=== PATIENT | female | born 1995 | race African-American/Black ===

== ENCOUNTER 2022-01-16 08:00 | Outpatient (CLI) | payer OTHER ==
[2022-01-16 22:25] LABS: BACTERIAL VAGINOSIS DNA POSITIVE (NEGATIVE); CANDIDA GLABRATA DNA NEGATIVE (NEGATIVE); CANDIDA GROUP DNA NEGATIVE (NEGATIVE); CANDIDA KRUSEI DNA NEGATIVE (NEGATIVE); TRICHOMONAS VAGINALIS DNA NEGATIVE (NEGATIVE)
[2022-01-16 22:59] LABS: CHLAMYDIA TRACHOMATIS DNA NEGATIVE (NEGATIVE); NEISSERIA GONORRHOEAE DNA NEGATIVE (NEGATIVE)
== END 2022-01-16 23:59 | disposition home or self-care (01) ==
LOC: LAB.N 08:00
PROVIDERS: ATTEND Family Medicine
DX: N39.0 Urinary tract infection, site not specified (principal); R10.2 Pelvic and perineal pain
CPT/HCPCS: 81514; 87491; 87591; 87661

== ENCOUNTER 2023-01-30 10:45 | Outpatient (CLI) | payer OTHER ==
[2023-01-30 19:39] LABS: BACTERIAL VAGINOSIS DNA POSITIVE (NEGATIVE); CANDIDA GLABRATA DNA NEGATIVE (NEGATIVE); CANDIDA GROUP DNA POSITIVE (NEGATIVE); CANDIDA KRUSEI DNA NEGATIVE (NEGATIVE); TRICHOMONAS VAGINALIS DNA NEGATIVE (NEGATIVE)
[2023-01-30 20:49] LABS: NEISSERIA GONORRHOEAE DNA NEGATIVE (NEGATIVE)
[2023-01-30 20:52] LABS: CHLAMYDIA TRACHOMATIS DNA POSITIVE (NEGATIVE)
[2023-01-31 06:10] LABS: RPR Non Reactive (Non Reactive)
[2023-01-31 08:09] LABS: HCV AB Non Reactive (Non Reactive); HIV SCREEN 4TH GENERATION Non Reactive (Non Reactive)
== END 2023-01-30 11:00 | disposition home or self-care (01) ==
LOC: LAB.N 10:45
PROVIDERS: ATTEND Physician Assistant Medical
DX: N30.00 Acute cystitis without hematuria (principal); R30.0 Dysuria
CPT/HCPCS: 81514; 86592; 86803; 87389; 87491; 87591; 87661

== ENCOUNTER 2023-02-26 08:00 | Outpatient (CLI) | payer OTHER ==
[2023-02-26 21:03] LABS: CHLAMYDIA TRACHOMATIS DNA NEGATIVE (NEGATIVE); NEISSERIA GONORRHOEAE DNA NEGATIVE (NEGATIVE)
[2023-02-27 00:13] LABS: BACTERIAL VAGINOSIS DNA NEGATIVE (NEGATIVE); CANDIDA GLABRATA DNA NEGATIVE (NEGATIVE); CANDIDA GROUP DNA NEGATIVE (NEGATIVE); CANDIDA KRUSEI DNA NEGATIVE (NEGATIVE); TRICHOMONAS VAGINALIS DNA NEGATIVE (NEGATIVE)
== END 2023-02-26 23:59 | disposition home or self-care (01) ==
LOC: LAB.N 08:00
PROVIDERS: ATTEND Nurse Practitioner
DX: Z11.3 Encounter for screening for infections with a predominantly sexual mode of transmission (principal)
CPT/HCPCS: 81514; 87491; 87591; 87661

== ENCOUNTER 2023-03-26 16:15 | Outpatient (CLI) | payer OTHER ==
[2023-03-27 04:51] LABS: INFLUENZA A- RESP PCR PANEL NOT DETECTED; INFLUENZA B - RESP PCR PANEL NOT DETECTED; RSV- RESP PCR PANEL NOT DETECTED; SARS-CoV-2 -RESP PCR PANEL NOT DETECTED
== END 2023-03-26 16:30 | disposition home or self-care (01) ==
LOC: LAB.N 16:15
PROVIDERS: ATTEND Physician Assistant Medical
DX: J02.9 Acute pharyngitis, unspecified (principal)
CPT/HCPCS: 87637

== ENCOUNTER 2023-04-10 16:22 | Emergency (ER) | payer OTHER ==
[2023-04-10 16:36] VITALS: O2SAT 98
[2023-04-10] MEDS ORDERED: KETOROLAC 60 MG/2 ML VIAL IM STA (16:44)
[2023-04-10] MEDS ORDERED: ONDANSETRON ODT 4 MG TABLET TL STA (16:44)
--- NOTE | 2023-04-10 17:05 | ED Physician Documentation ---
PD HPI HEADACHE - Stated complaint Stated Complaint: R EYE BLURRED/MIGRANE... - Chief complaint Chief Complaint: Heent - History obtained from History obtained from: Patient - History of Present Illness Timing - onset: Today Timing - details: Gradual onset Pain level max: 8 Pain level now: 8 Quality: No: Thunderclap, Throbbing, Aching, Stabbing, Tightness Associated symptoms: No: Fever, Stiff neck, Nausea, Vomiting, Weakness, Numbness, Syncope, Seizure, Eye pain, Vision changes Improved by: Rest Worsened by: Light, Noise Contributing factors: No: Anticoagulated Recently seen: Not recently seen - Additional information Additional information: Patient is a 27-year-old female who states that she started getting migraine headache today. Took her Imitrex at home without relief. States that she has blurred vision in her right eye. Nausea but no vomiting. Has a longstanding history of migraines. Feels similar to her normal migraine. No fevers. No chills. No cough. No congestion. Denies any possibility of . No trauma. She drove herself and her children to the emergency department. Review of Systems Constitutional: denies: Fever, Chills Cardiac: denies: Chest pain / pressure Respiratory: denies: Cough GI: reports: Nausea. 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 HEENT: None Psych: None Musculoskeletal: None Derm: Other drug resistant infections - Past Surgical History Past Surgical History: No - Present Medications Home Medications: Ambulatory Orders Medication Instructions Recorded Confirmed Butalb/Acetaminophen/Caffeine 1 cap PO Q6H PRN #10 cap 04/10/23 [Fioricet 50-300-40 mg Capsule] SUMAtriptan [Imitrex] 25 mg PO DAILY 04/10/23 Topiramate [Topamax] 25 mg PO DAILY 04/10/23 - Allergies Allergies/Adverse Reactions: Allergies Allergy/AdvReac Type Severity Reaction Status Date / Time No Known Drug Allergies Allergy Verified 04/10/23 16:31 - Social History Does the pt smoke?: No Smoking Status: Never smoker Does the pt drink ETOH?: No Does the pt have substance abuse?: No - Immunizations Immunizations are current?: Yes - POLST Patient has POLST: No PD ED PE NORMAL - Vitals Vital signs reviewed: Yes - General General: Alert and oriented X 3, No acute distress, Well developed/nourished - HEENT HEENT: Atraumatic, PERRL, Moist mucous membranes, Pharynx benign - Neck Neck: Supple, no meningeal sign - Cardiac Cardiac: RRR, Strong equal pulses - Respiratory Respiratory: No respiratory distress, Clear bilaterally - Abdomen Abdomen: Soft, Non tender, Non distended - Derm Derm: Warm and dry - Extremities Extremities: No edema - Neuro Neuro: Alert and oriented X 3, 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 Given Toradol and Imitrex here. Still has a mild headache. She states she cannot find the 1 to give her a ride, therefore we cannot use any sedating medications. She would like to try Fioricet at home. I will send a prescription to the pharmacy for her and she can take this when she gets home. No evidence of subarachnoid hemorrhage, tumor. No indication for emergent neuroimaging. Patient is well-appearing, nontoxic. Afebrile. Eyes wide open in a brightly lit room. Patient counseled regarding signs and symptoms for which I believe and urgent re-evaluation would be necessary. Patient with good understanding of and agreement to plan and is comfortable going home at this time This document was made in part using voice recognition software. While efforts are made to proofread this document, sound alike and grammatical errors may oc cur. Departure - Departure Disposition: 01 Home, Self Care Clinical Impression: Migraine Qualifiers: Migraine type: unspecified Status migrainosus presence: without status migrainosus Intractability: not intractable Qualified Code(s): G43.909 - Migraine, unspecified, not intractable, without status migrainosus Condition: Good Instructions: ED Headache Migraine Follow-Up: your,doctor tomorrow [Other] Prescriptions: Butalb/Acetaminophen/Caffeine [Fioricet 50-300-40 mg Capsule] 1 cap PO Q6H PRN #10 cap PRN Reason: headache Comments: [facility] [place] As we discussed we are limited on the medications we can give you in the emergency department as you are driving. You can take the Fioricet when you are at home, it can cause drowsiness. Please return if you worsen. Forms: PCP List Discharge Date/Time: 04/10/23 18:44
[2023-04-10] MEDS ORDERED: SUMAtriptan 6 MG/0.5 ML VIAL SUBQ STA (17:34)
[2023-04-10 18:44] VITALS: BP 134/82
== END 2023-04-10 18:44 | disposition home or self-care (01) ==
LOC: ED 16:22
DX: G43.909 Migraine, unspecified, not intractable, without status migrainosus (principal)
CPT/HCPCS: 96372; 99283; Q0162

== ENCOUNTER 2023-04-11 09:14 | Emergency (ER) | payer OTHER ==
[2023-04-11] MEDS ORDERED: SODIUM CHLORIDE 0.9% 1,000 ML IV STA (09:37)
[2023-04-11 09:40] LABS: BASOPHILS % (AUTO) 0.1 %; EOSINOPHILS % (AUTO) 0.2 %; HGB - HEMOGLOBIN 14.1 g/dL (12.0-16.0); LYMPHOCYTES # (AUTO) 0.9 10^3/uL (1.5-3.5); LYMPHOCYTES % (AUTO) 10.5 %; MEAN CORPUSCULAR HEMOGLOBIN 30.2 pg (27.0-31.0); MEAN CORPUSCULAR VOLUME 94.2 fL (81.0-99.0); MEAN PLATELET VOLUME 9.6 fL (7.9-10.8); MONOCYTES # (AUTO) 0.4 10^3/uL (0.0-1.0); MONOCYTES % (AUTO) 4.8 %; NEUTROPHILS # (AUTO) 7.5 10^3/uL (1.5-6.6); NEUTROPHILS % (AUTO) 84.2 %; PLT - PLATELET COUNT 345 10^3/uL (130-450); RED BLOOD COUNT 4.67 10^6/uL (4.20-5.40); RED CELL DISTRIBUTION WIDTH 12.5 % (12.0-15.0); WHITE BLOOD COUNT 8.9 x10^3/uL (4.8-10.8)
[2023-04-11 09:40] LABS: BILIRUBIN,URINE NEGATIVE (NEGATIVE); GLUCOSE, URINE (UA) NEGATIVE (NEGATIVE); KETONES,URINE (UA) NEGATIVE (NEGATIVE); LEUKOCYTE ESTERASE, URINE NEGATIVE (NEGATIVE); NITRITE,URINE NEGATIVE (NEGATIVE); OCCULT BLOOD,URINE NEGATIVE (NEGATIVE); PROTEIN,URINE NEGATIVE (NEGATIVE); UROBILINOGEN,URINE 0.2 (NORMAL) E.U./dL (NORMAL)
[2023-04-11 09:41] LABS: CLARITY,URINE CLEAR (CLEAR)
[2023-04-11 09:43] LABS: HCG UR QUAL NEGATIVE
[2023-04-11 09:53] LABS: ALBUMIN 4.4 g/dL (3.2-5.5); ALBUMIN/GLOBULIN RATIO 1.2 (1.0-2.2); BILIRUBIN,TOTAL 1.4 mg/dL (0.2-1.0); CALCIUM 9.4 mg/dL (8.5-10.3); CREATININE 0.9 mg/dL (0.6-1.3); POTASSIUM 3.9 mmol/L (3.5-4.5); TOTAL PROTEIN 8.1 g/dL (6.4-8.9)
[2023-04-11] MEDS ORDERED: iohexoL-300 100 ML VIAL ONE (10:02)
[2023-04-11] MEDS ORDERED: iohexoL-300 100 ML VIAL IVP ONE (10:27)
--- NOTE | 2023-04-11 10:58 | CT Report ---
PROCEDURE: Abdomen/Pelvis W INDICATIONS: lower abd pain R>L CONTRAST: 100ml omni 300 TECHNIQUE: After the administration of intravenous contrast, a CT scan of the abdomen and pelvis was performed. Images were recorded and evaluated at appropriate window settings. Reformats: coronal and sagittal. F or radiation dose reduction, the following was used: automated exposure control, adjustment of mA and /or kV according to patient size. COMPARISON: None FINDINGS: Image quality: Diagnostic Lower chest: Bibasilar atelectasis. No pleural effusions. Mildly patulous distal esophagus is nonspec ific. Liver: Focal fat adjacent to the falciform ligament. Gallbladder and biliary system: Unremarkable Pancreas: Nondilated Spleen: Nonenlarged Adrenals: No discrete nodule Kidneys: No solid masses. No hydronephrosis. Vessels and lymph nodes: No evidence of portal venous thrombus. No abdominal aortic aneurysm. No path ologic lymph nodes by size criteria. Bowel and peritoneum: No evidence of small bowel obstruction. No drainable abscess or ascites is pres ent. A small amount pelvic free fluid may be physiologic in this age group. The appendix is seen and is nondilated. There is mild wall thickening and pericolonic fat stranding in the cecum. Submucosal fatty deposition in the ascending colon. There may also be other areas of mild wall thickening in the distal colon, n ot well evaluated however due to underdistention. Mild mural stratification in the rectum. Body wall: Unremarkable Pelvis: IUD is in place. Reproductive organs appear physiologic on limited CT evaluation. Consider ul trasound if there is further concern. Bones: Unremarkable IMPRESSION: The appendix is nondilated. Suspected mild multisegmental infectious or inflammatory proctocolitis, most particularly affecting t he cecum. Submucosal fatty deposition in the ascending colon is nonspecific, sometimes seen with prio r chronic inflammation. No bowel obstruction, abscess, or other acute pathology in the abdomen/pelvis. Other findings as above. Reviewed by: Elton Jimenez MD on 04/11/2023 10:56 AM [facility] Approved by: Elotn Jimenez MD on 04/11/2023 10:56 AM PST Station ID: [id number]
--- NOTE | 2023-04-11 12:03 | ED Physician Documentation ---
PD HPI ABD PAIN - Stated complaint Stated Complaint: ABD PX - Chief complaint Chief Complaint: Abd Pain - History obtained from History obtained from: Patient - Additional information Additional information: Patient is a 27-year-old female with a history of migraines presenting for evaluation of lower abdominal cramping starting last night. Patient was seen here earlier yesterday for a headache and says that has resolved. She reports having the lower abdominal cramping yesterday and into today. She went to the walk-in clinic and they directed her to the ER for evaluation. She reports that initially felt like she needed to have a bowel movement. However she continued to have pain despite the bowel movement. She has associated nausea. Denies prior abdominal surgeries. No vaginal bleeding or discharge. Denies concerns for . She did have dinner last night without any issue but has not eaten yet today. Review of Systems Constitutional: denies: Fever Cardiac: denies: Chest pain / pressure Respiratory: denies: Dyspnea GI: reports: Abdominal Pain, Nausea. 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 HEENT: None Psych: None Musculoskeletal: None Derm: Other drug resistant infections - Past Surgical History Past Surgical History: No - Present Medications Home Medications: Ambulatory Orders Medication Instructions Recorded Confirmed Butalb/Acetaminophen/Caffeine 1 cap PO Q6H PRN #10 cap 04/10/23 04/11/23 [Fioricet 50-300-40 mg Capsule] SUMAtriptan [Imitrex] 25 mg PO DAILY 04/10/23 04/11/23 Topiramate [Topamax] 25 mg PO DAILY 04/10/23 04/11/23 - Allergies Allergies/Adverse Reactions: Allergies Allergy/AdvReac Type Severity Reaction Status Date / Time No Known Drug Allergies Allergy Verified 04/11/23 09:27 - Social History Does the pt smoke?: No Smoking Status: Never smoker Does the pt drink ETOH?: No Does the pt have substance abuse?: No - Immunizations Immunizations are current?: Yes - POLST Patient has POLST: No PD ED PE NORMAL - General General: Alert and oriented X 3, No acute distress, Well developed/nourished - HEENT HEENT: Atraumatic, Moist mucous membranes, Pharynx benign - Neck Neck: Supple, no meningeal sign - Cardiac Cardiac: RRR, Strong equal pulses - Respiratory Respiratory: No respiratory distress, Clear bilaterally - Abdomen Abdomen: Normal bowel sounds, Soft, Non distended, Other (Mild tenderness in bilateral lower quadrants, no rebound, no guarding, no Palpable mass) - Derm Derm: Warm and dry - Neuro Neuro: Normal speech Results - Vitals Vitals: Vital Signs - 24 hr 04/11/23 04/11/23 09:21 12:13 Temperature 36.7 C 36.3 C L Heart Rate 89 75 Respiratory 15 18 Rate Blood Pressure 137/94 H 135/80 H O2 Saturation 99 100 Oxygen O2 Source Room air - Labs Labs: Laboratory Tests 04/11/23 04/11/23 04/11/23 09:26 09:34 09:34 WBC 8.9 RBC 4.67 Hgb 14.1 Hct 44.0 MCV 94.2 MCH 30.2 MCHC 32.0 RDW 12.5 Plt Count 345 MPV 9.6 Neut # (Auto) 7.5 H Lymph # (Auto) 0.9 L Pender # (Auto) 0.4 Eos # (Auto) 0.0 Baso # (Auto) 0.0 Absolute Nucleated RBC 0.00 Nucleated RBC % 0.0 Sodium 137 Potassium 3.9 Chloride 108 Carbon Dioxide 25 Anion Gap 4.0 L BUN 11 Creatinine 0.9 Estimated GFR (MDRD) 92 Glucose 83 Calcium 9.4 Total Bilirubin 1.4 H AST 26 ALT 60 Alkaline Phosphatase 53 Total Protein 8.1 Albumin 4.4 Globulin 3.7 Albumin/Globulin Ratio 1.2 Lipase 16 Urine Color DARK YELLOW Urine Clarity CLEAR Urine pH 6.0 Ur Specific [place] 1.025 Urine Protein NEGATIVE Urine Glucose (UA) NEGATIVE Urine Ketones NEGATIVE Urine Occult Blood NEGATIVE Urine Nitrite NEGATIVE Urine Bilirubin NEGATIVE Urine Urobilinogen 0.2 (NORMAL) Ur Leukocyte Esterase NEGATIVE Ur Microscopic Review NOT INDICATED Urine Culture Comments NOT INDICATED Urine HCG, Qual NEGATIVE PD Medical Decision Making - ED course Complexity details: reviewed results, re-evaluated patient, d/w patient ED course: Patient is a 27-year-old female presenting for evaluation of lower abdominal cramping since last night. Afebrile with stable vital signs. Mild tenderness noted on exam. Patient denies concerns for . Labs including CBC, chemistry and urinalysis were obtained and reviewed without significant findings. Patient is not . CT of the abdomen and pelvis was obtained which I reviewed. No signs of appendicitis.There is mild wall thickening and fat stranding in the cecum. I have mild colitis. I do not think antibiotics would be necessary at this time. Ultrasound was also obtained which shows no signs of ovarian torsion.Recommend continued supportive care and hydration and close follow-up if symptoms are not improving.Patient advised on return precautions. Departure - Departure Disposition: 01 Home, Self Care Clinical Impression: Bilateral lower abdominal cramping Condition: Stable Instructions: ED Abdominal Pain Female Non-Specific Abdominal Pain Comments: Your testing today does not show any signs of appendicitis or issues with your ovaries. There is some mild inflammation throughout your colon which could be The cause for your symptoms. I do not think antibiotics are indicated at this time. I would recommend acetaminophen or ibuprofen as needed for pain, bland diet and close follow-up if your symptoms are not improving. Forms: PCP List Discharge Date/Time: 04/11/23 12:14
--- NOTE | 2023-04-11 12:13 | Ultrasound Report ---
PROCEDURE: Pelvic w/Transvag+Doppler Comp INDICATIONS: pelvic cramping R>L TECHNIQUE: Real-time scanning was performed of the pelvic organs, with image documentation. Additional endovagi nal scanning was necessary due to incomplete visualization of the adnexal and endometrial structures by transabdominal scanning. Doppler interrogation was performed of the ovaries bilaterally. COMPARISON: None. FINDINGS: Uterus: 8.2 x 4.3 x 5.7 cm. Endometrium measures 4 mm. The IUD is seen within the endometrium, upper tip is 3 mm from the endometrial fundus. Ovaries: Nonenlarged ovaries bilaterally. Color and spectral Doppler: flows are documented Other: No pathologic free fluid. Small free fluid is seen, which is likely physiologic. IMPRESSION: No acute pelvic sonographic abnormality. Reviewed by: Elton Jimenez MD on 04/11/2023 12:12 PM PST Approved by: Elton Jimenez MD on 04/11/2023 12:12 PM PST Station ID: [id number]
[2023-04-11 12:16] VITALS: BP 135/80; O2SAT 100
== END 2023-04-11 12:14 | disposition home or self-care (01) ==
LOC: ED 09:14
DX: R10.30 Lower abdominal pain, unspecified (principal)
CPT/HCPCS: 36415; 74177; 76830; 76856; 80053; 81003; 81025; 83690; 85025; 93975; 99283; 99284; Q9967; 81001; 87086

== ENCOUNTER 2023-08-15 04:46 | Emergency (ER) | payer OTHER ==
[2023-08-15 05:13] VITALS: BP 144/94; O2SAT 99
[2023-08-15] MEDS: LIDOCAINE PATCH 5% TOP STA (05:45)
[2023-08-15] MEDS: CYCLOBENZAPRINE 10 MG Prepack 2 PO PRN (05:45)
--- NOTE | 2023-08-15 05:46 | ED Physician Documentation ---
PD HPI NECK PAIN - Stated complaint Stated Complaint: L NECK/ARM PX - Chief complaint Chief Complaint: Trauma Hd/Nk - History obtained from History obtained from: Patient - Additional information Additional information: Patient is a 27-year-old female presenting for evaluation of left-sided neck pain starting yesterday. Patient was getting Botox injections for her migraines at the [facility] in [place]. She has had them done before but not in the neck region. She states that she was getting the injections and she felt discomfort on the left neck region that felt like a tightness. She did tell the provider of her symptoms at the time but they felt that it should get better in a few hours but has not. Patient denies fever, itchiness, weakness in the arms or legs. 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 HEENT: None Psych: None Musculoskeletal: None Derm: Other drug resistant infections - Past Surgical History Past Surgical History: No - Present Medications Home Medications: Ambulatory Orders Medication Instructions Recorded Confirmed Butalb/Acetaminophen/Caffeine 1 cap PO Q6H PRN #10 cap 04/10/23 04/11/23 [Fioricet 50-300-40 mg Capsule] SUMAtriptan [Imitrex] 25 mg PO DAILY 04/10/23 04/11/23 Topiramate [Topamax] 25 mg PO DAILY 04/10/23 04/11/23 Cyclobenzaprine [Flexeril] 10 mg PO TID PRN #20 tablet 08/15/23 Lidocaine Patch 5% [Lidoderm Patch] 1 patch TOP DAILY PRN #10 patch 08/15/23 - Allergies Allergies/Adverse Reactions: Allergies Allergy/AdvReac Type Severity Reaction Status Date / Time No Known Drug Allergies Allergy Verified 04/11/23 09:27 - Social History Does the pt smoke?: No Smoking Status: Never smoker Does the pt drink ETOH?: No Does the pt have substance abuse?: No - Immunizations Immunizations are current?: Yes - POLST Patient has POLST: No PD ED PE NORMAL - General General: Alert and oriented X 3, No acute distress, Well developed/nourished - HEENT HEENT: Atraumatic, Moist mucous membranes, Pharynx benign - Neck Neck: Supple, no meningeal sign, No bony TTP, Other (Tenderness over left paracervical muscles into the trapezius) - Cardiac Cardiac: RRR, Strong equal pulses - Respiratory Respiratory: No respiratory distress, Clear bilaterally - Back Back: No spinal TTP - Derm Derm: Warm and dry, No rash - Extremities Extremities: Other (Normal strength with shoulder extension, arm flexion and extension, wrist extension and hand grasp) - Neuro Neuro: Alert and oriented X 3, No motor deficit, No sensory deficit, Normal speech PD ED PE EXPANDED - Back Back visual: 1 - tenderness Results - Vitals Vitals: Vital Signs - 24 hr 08/15/23 05:06 Temperature 36.6 C Heart Rate 72 Respiratory 12 Rate Blood Pressure 144/94 H O2 Saturation 99 Oxygen O2 Source Room air PD Medical Decision Making - ED course ED course: Patient is a 27-year-old female presenting for evaluation of left-sided neck pain after getting Botox injections for migraines yesterday. Normal neuroexam with no midline C-spine tenderness. No signs of meningitis. She does have tightness over the left paracervical and trapezius. Pain appears to be related to muscle spasm. Will trial course of muscle relaxers, lidocaine patch and anti-inflammatories. Patient counseled on concerning symptoms to return for. Departure - Departure Disposition: Home, Self Care Clinical Impression: Cervical paraspinous muscle spasm Condition: Stable Instructions: ED Spasm Neck No Injury Follow-Up: [facility] [Provider Group] Prescriptions: Cyclobenzaprine [Flexeril] 10 mg PO TID PRN #20 tablet PRN Reason: Spasms Lidocaine Patch 5% [Lidoderm Patch] 1 patch TOP DAILY PRN #10 patch PRN Reason: pain Comments: [facility] [place] Please continue with the muscle relaxer as needed for pain as well as lidocaine patches. You may want to try ice versus heat to see if this also helps with your discomfort. If your symptoms are not improving then please have close follow-up with your primary care provider. Return to the ER if you develop any worsening symptoms such as weakness in your arms, fever or any other concerns. Forms: PCP List, Activity restrictions Discharge Date/Time: 08/15/23 06:32
== END 2023-08-15 06:32 | disposition home or self-care (01) ==
LOC: ED 04:46
DX: M62.838 Other muscle spasm (principal)
CPT/HCPCS: 99283; A9270

== ENCOUNTER 2023-09-04 09:00 | Outpatient (CLI) | payer OTHER ==
[2023-09-04 19:53] LABS: BACTERIAL VAGINOSIS DNA NEGATIVE (NEGATIVE); CANDIDA GLABRATA DNA NEGATIVE (NEGATIVE); CANDIDA GROUP DNA POSITIVE (NEGATIVE); CANDIDA KRUSEI DNA NEGATIVE (NEGATIVE); TRICHOMONAS VAGINALIS DNA NEGATIVE (NEGATIVE)
[2023-09-04 22:05] LABS: CHLAMYDIA TRACHOMATIS DNA NEGATIVE (NEGATIVE); NEISSERIA GONORRHOEAE DNA NEGATIVE (NEGATIVE)
== END 2023-09-04 09:15 | disposition home or self-care (01) ==
LOC: LAB.N 09:00
PROVIDERS: ATTEND Physician Assistant
DX: N76.0 Acute vaginitis (principal)
CPT/HCPCS: 81514; 87491; 87591; 87661

== ENCOUNTER 2023-09-06 12:39 | Outpatient (CLI) | payer OTHER ==
--- NOTE | 2023-09-08 07:39 | MRI Report ---
PROCEDURE: Lumbar Spine WO INDICATIONS: CHRONIC PAIN TECHNIQUE: Noncontrast sagittal T1 spin echo and T2 fast echo, sagittal STIR, axial T1 and T2 fast spin echo thr ough the lumbar spine. In cases with scoliosis, additional coronal T2 fast spin echo may be performe d. COMPARISON: CT abdomen and pelvis dated 04/11/2023. FINDINGS: Image quality: Excellent. Alignment and Curvature: There is normal bony alignment. Bone Marrow: Marrow is of normal overall signal. No acute vertebral body compression fractures. Spinal Cord: Conus medullaris terminates at the L1-L2 level. Visualized cord demonstrates normal si gnal and size. Paraspinous Soft Tissues: No paravertebral masses. T12-L1: Normal in appearance. L1-L2: Normal in appearance. L2-L3: Normal in appearance. L3-L4: Mild facet hypertrophy. No canal stenosis or foraminal stenosis. L4-L5: Mild facet hypertrophy. No canal stenosis or foraminal stenosis. L5-S1: Mild disc bulge. Facet hypertrophy. Unilateral left L5 pars defect, confirming on the CT sca n No canal stenosis or foraminal stenosis. IMPRESSION: 1. No canal stenosis or foraminal stenosis. 2. Lower lumbar facet arthropathy. 3. Unilateral left L5 pars defect. Reviewed by: Cheo Harris MD on 09/08/2023 7:37 AM PDT Approved by: Cheo Harris MD on 09/08/2023 7:37 AM PDT Station ID: [id number]
== END 2023-09-06 12:40 | disposition home or self-care (01) ==
LOC: DI 12:39
PROVIDERS: ATTEND Physician Assistant
DX: M47.816 Spondylosis without myelopathy or radiculopathy, lumbar region (principal); M47.817 Spondylosis without myelopathy or radiculopathy, lumbosacral region; M43.06 Spondylolysis, lumbar region

== ENCOUNTER 2023-10-06 22:22 | Emergency (ER) | payer OTHER ==
--- NOTE | 2023-10-06 22:41 | ED Physician Documentation ---
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 Has chronic back pain with a flare over the last 2 weeks. Had an MRI done a month ago showing a unilateral L5 left pars defect and lower lumbar facet arthropathy. Has been on Celebrex, lidocaine patches and Tylenol without relief. Has appointment with orthopedics in about a week. 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 HEENT: None Psych: None Musculoskeletal: Chronic back pain Derm: Other drug resistant infections - Past Surgical History Past Surgical History: No - Present Medications Home Medications: Ambulatory Orders Medication Instructions Recorded Confirmed Butalb/Acetaminophen/Caffeine 1 cap PO Q6H PRN #10 cap 04/10/23 04/11/23 [Fioricet 50-300-40 mg Capsule] SUMAtriptan [Imitrex] 25 mg PO DAILY 04/10/23 04/11/23 Topiramate [Topamax] 25 mg PO DAILY 04/10/23 04/11/23 Cyclobenzaprine [Flexeril] 10 mg PO TID PRN #20 tablet 08/15/23 Lidocaine Patch 5% [Lidoderm Patch] 1 patch TOP DAILY PRN #10 patch 08/15/23 HYDROcod/ACETAM 5/325 [[place] 5/325] 1 - 2 tab PO Q6H PRN #10 tablet 10/06/23 - Allergies Allergies/Adverse Reactions: Allergies Allergy/AdvReac Type Severity Reaction Status Date / Time No Known Drug Allergies Allergy Verified 10/06/23 22:25 - Social History Does the pt smoke?: No Smoking Status: Never smoker Does the pt drink ETOH?: No Does the pt have substance abuse?: No - Immunizations Immunizations are current?: Yes - POLST Patient has POLST: No PD ED PE NORMAL - Vitals Vital signs reviewed: Yes - General General: Alert and oriented X 3, No acute distress - Back Back: Other (Some tenderness around L4-L5, normal gait) - Extremities Extremities: Other (The patient has equal and normal Achilles and patellar reflexes bilaterally. Normal sensation in all areas of the legs. Patient denies saddle anesthesia. Normal strength in flexion-extension at the ankles, knees, and flexion of the hips.) - Neuro Neuro: Alert and oriented X 3, Normal speech Results - Vitals Vitals: Vital Signs - 24 hr 10/06/23 22:25 Temperature 36.8 C Heart Rate 100 Respiratory 16 Rate Blood Pressure 148/90 H O2 Saturation 98 Oxygen O2 Source Room air PD Medical Decision Making - ED course ED course: This patient has seemingly uncomplicated musculoskeletal back pain. The patient has no "red flags." Specifically denies IV drug use, fevers, incontinence, saddle anesthesia. Spinal epidural abscess was considered, given that the patient has no fever, is not diabetic, has no spinal tenderness, does not use IV drugs, and has no bilateral neurologic symptoms, the diagnosis of spinal epidural abscess is considered exceedingly unlikely. Departure - Departure Disposition: 01 Home, Self Care Clinical Impression: Back pain Qualifiers: Back pain location: low back pain Chronicity: acute Back pain laterality: midline Sciatica presence: without sciatica Qualified Code(s): M54.50 - Low back pain, unspecified Condition: Good Record reviewed to determine appropriate education?: Yes Instructions: ED Chronic Pain Management Prescriptions: HYDROcod/ACETAM 5/325 [[place] 5/325] 1 - 2 tab PO Q6H PRN #10 tablet PRN Reason: Pain Comments: I sent your prescription electronically to [facility] in [place]. You can take it in addition to the medications the [facility] put you on. These medications are stronger and you should take them as little as possible and for shortest time possible. Follow-up with the specialist in a week as scheduled. 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 Return for new or worsening symptoms. I am prescribing a short course of narcotic pain medication for you. These are potentially dangerous and addictive medications that should be used carefully. These medications may constipate you. Take an [id number] stool softener (docusate) twice daily with plenty of water while taking these medications. If you go 24 hours without a bowel movement, take [id number] miralax, per package instructions. Do not drink or drive while taking these medications. If you received narcotic or sedating medications while in the emergency department, do not drive for 24 hours. Store this medication in a safe, secure place and out of reach of children. It is a violation of federal law to give or sell this medication to another person or to use in a manner other than prescribed. The ED will not refill narcotic prescriptions, including prescriptions lost or stolen. To dispose of unwanted medications: 1. [facility] provides a drop box for medication in pill form only (no liquids) 8:00 am to 4:30 p.m. Friday-Friday in the lobby of the [facility], [address] [place] [address]. Empty pills into ziplock bag before disposal. Call [phone] for information. 2.[employer] is a free service available to all [facility] residents. Go to [email or web address] Note that many narcotic pain relievers also contain Tylenol/acetaminophen. Please ensure that your total dose of acetaminophen from all sources does not exceed 3 g (3000 mg) per day.
[2023-10-06] MEDS: HYDROcod/ACET 5/325 Prepack 4 PO STA (22:44)
[2023-10-06 22:53] VITALS: BP 122/68; O2SAT 99
== END 2023-10-06 22:46 | disposition home or self-care (01) ==
LOC: ED 22:22
DX: M54.50 Low back pain, unspecified (principal); Z79.899 Other long term (current) drug therapy
CPT/HCPCS: 99283

== ENCOUNTER 2023-10-21 09:15 | Outpatient (CLI) | payer OTHER | END 2023-10-21 09:30 | disposition home or self-care (01) | LOC: LAB.N 09:15 | PROVIDERS: ATTEND Physician Assistant Medical | DX: R82.81 Pyuria (principal) | CPT/HCPCS: 87086 ==

== ENCOUNTER 2023-11-17 17:48 | Emergency (ER) | payer OTHER ==
[2023-11-17 18:04] VITALS: BP 145/94; O2SAT 99
--- NOTE | 2023-11-17 20:49 | ED Physician Documentation ---
PD HPI HEADACHE - Stated complaint Stated Complaint: MIGRAINE - Chief complaint Chief Complaint: Neuro - History obtained from History obtained from: Patient - History of Present Illness Timing - details: Gradual onset Pain level max: 8 Pain level now: 8 Location: Right Associated symptoms: Nausea. No: Fever, Stiff neck, Vomiting Improved by: Rest, Dark room Worsened by: Light, Noise - Additional information Additional information: Patient is a 27-year-old female history of migraines presents to the emergency department with a migraine headache for the past several days. She was taking Imitrex but did not feel like it was helping so stopped this. She is on Topamax and receiving Botox for her headaches. Worse with light and sound. She drove herself to the emergency department. Some nausea but no vomiting. No fevers. No falls. Gradual in onset, right-sided. Similar to prior headaches. Denies any possibility of . 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 HEENT: None Psych: None Musculoskeletal: Chronic back pain Derm: Other drug resistant infections - Past Surgical History Past Surgical History: No - Present Medications Home Medications: Ambulatory Orders Medication Instructions Recorded Confirmed Butalb/Acetaminophen/Caffeine 1 cap PO Q6H PRN #10 cap 04/10/23 04/11/23 [Fioricet 50-300-40 mg Capsule] SUMAtriptan [Imitrex] 25 mg PO DAILY 04/10/23 04/11/23 Topiramate [Topamax] 25 mg PO DAILY 04/10/23 04/11/23 Cyclobenzaprine [Flexeril] 10 mg PO TID PRN #20 tablet 08/15/23 Lidocaine Patch 5% [Lidoderm Patch] 1 patch TOP DAILY PRN #10 patch 08/15/23 HYDROcod/ACETAM 5/325 [[place] 5/325] 1 - 2 tab PO Q6H PRN #10 tablet 10/06/23 - Allergies Allergies/Adverse Reactions: Allergies Allergy/AdvReac Type Severity Reaction Status Date / Time No Known Drug Allergies Allergy Verified 11/17/23 17:53 - Social History Does the pt smoke?: No Smoking Status: Never smoker Does the pt drink ETOH?: No Does the pt have substance abuse?: No - Immunizations Immunizations are current?: Yes - POLST Patient has POLST: No PD ED PE NORMAL - Vitals Vital signs reviewed: Yes - General General: Alert and oriented X 3, No acute distress - HEENT HEENT: Atraumatic, PERRL, EOMI, Moist mucous membranes, Pharynx benign - Neck Neck: Supple, no meningeal sign, No bony TTP, No bruit - Cardiac Cardiac: RRR, Strong equal pulses - Respiratory Respiratory: No respiratory distress, Clear bilaterally - Abdomen Abdomen: Soft, Non tender, Non distended - Derm Derm: Warm and dry - Extremities Extremities: No edema - Neuro Neuro: Alert 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 She was given Toradol, dexamethasone and Imitrex. Headache resolved. Requesting discharge at this time. Afebrile. No indication for further work up at this time. No evidence of subarachnoid hemorrhage.Patient counseled regarding signs and symptoms for which I believe an urgent re-evaluation would be necessary. Patient with good understanding of and agreement to plan and is comfortable going home at this time.This document was made in part using voice recognition software. While efforts are made to proofread this document, sound alike and grammatical errors may occur. Departure - Departure Disposition: 01 Home, Self Care Clinical Impression: Migraine Qualifiers: Migraine type: unspecified Status migrainosus presence: without status migrainosus Intractability: not intractable Qualified Code(s): G43.909 - Migraine, unspecified, not intractable, without status migrainosus Condition: Good Instructions: ED Headache Migraine Follow-Up: RADHA JOSE FNP [Primary Care Provider] - Comments: Please follow-up with your doctor for further care. You are given Toradol, Imitrex and dexamethasone today. Your headache has improved. Continue your current medications at home and return if you worsen. Forms: PCP List Discharge Date/Time: 11/17/23 22:24
[2023-11-17] MEDS: SUMAtriptan 6 MG/0.5 ML VIAL SUBQ STA (20:52)
[2023-11-17] MEDS: KETOROLAC 60 MG/2 ML VIAL IM STA (20:52)
[2023-11-17] MEDS: PROCHLORPERAZINE 10 MG/2 ML VIAL IM STA (21:44)
[2023-11-17] MEDS: DEXAMETHASONE 10 MG/ML VIAL IM STA (21:45)
== END 2023-11-17 22:24 | disposition home or self-care (01) ==
LOC: ED 17:48
DX: G43.909 Migraine, unspecified, not intractable, without status migrainosus (principal); Z79.899 Other long term (current) drug therapy
CPT/HCPCS: 96374; 96375; 99283